=== PATIENT | female | born 1965 | race Hispanic/Latino ===

== ENCOUNTER 2022-08-07 21:35 | Emergency (ER) | payer OTHER ==
[~2022-08-07] VITALS: Ht 154.9 cm; Wt 100.7 kg
[2022-08-07] MEDS ORDERED: DEXAMETHASONE SOD PHOSPHATE 4 MG/ML 1ML VIAL IM ONE (23:30)
[2022-08-07] MEDS ORDERED: ONDANSETRON ODT 4MG TAB SL ONE (23:30)
[2022-08-07] MEDS ORDERED: ACETAMINOPHEN 500 MG TABLET PO ONE (23:30)
[2022-08-07] MEDS ORDERED: KETOROLAC 60 MG VIAL (30MG/ML) IM ONE (23:30)
[2022-08-08 01:01] VITALS: BP 120/84
[2022-08-08] MEDS ORDERED: IBUP-2070 PO (01:05)
[2022-08-08] MEDS ORDERED: PSEU120T62 PO (01:05)
[2022-08-08] MEDS ORDERED: AMOX-426 PO (01:05)
[2022-08-08] MEDS ORDERED: PHEN118L19 PO (01:05)
== END 2022-08-08 01:19 | disposition home or self-care (01) ==
LOC: EDH 21:35
DX: J01.90 Acute sinusitis, unspecified (principal); I10 Essential (primary) hypertension; E11.9 Type 2 diabetes mellitus without complications; J45.909 Unspecified asthma, uncomplicated; Z20.822 Contact with and (suspected) exposure to COVID-19; Z85.828 Personal history of other malignant neoplasm of skin; Z96.652 Presence of left artificial knee joint; Z90.710 Acquired absence of both cervix and uterus; Z98.890 Other specified postprocedural states
CPT/HCPCS: 99284; 87635; 87880; 87804 ×2; 96372 ×2; J1100; C9803; J1885

== ENCOUNTER 2022-10-31 22:47 | Emergency (ER) | payer OTHER ==
[~2022-10-31] VITALS: Ht 152.4 cm; Wt 103.0 kg
[~2022-10-31 22:47] MED LIST: AMOX-426 PO; IBUP-2070 PO; PHEN118L19 PO; PSEU120T62 PO
[2022-11-01] MEDS ORDERED: PREG100C PO (02:15)
[2022-11-01] MEDS ORDERED: PREGABALIN 100 MG CAPSULE PO ONE (02:30)
[2022-11-01] MEDS ORDERED: PREGABALIN 25 MG CAP ONE (02:50)
[2022-11-01] MEDS ORDERED: PREGABALIN 75 MG CAPSULE ONE (02:50)
[2022-11-01 03:20] VITALS: BP 128/56; PULSE 89; RESP 18
== END 2022-11-01 03:32 | disposition home or self-care (01) ==
LOC: EDH 22:47
DX: M79.7 Fibromyalgia (principal); M79.641 Pain in right hand; M79.642 Pain in left hand; M25.551 Pain in right hip; M25.552 Pain in left hip; I10 Essential (primary) hypertension; E11.9 Type 2 diabetes mellitus without complications; E78.00 Pure hypercholesterolemia, unspecified; M19.90 Unspecified osteoarthritis, unspecified site; Z79.899 Other long term (current) drug therapy; Z90.710 Acquired absence of both cervix and uterus; Z98.890 Other specified postprocedural states

== ENCOUNTER 2023-04-10 23:12 | Emergency (ER) | payer MEDICAID, OTHER ==
[~2023-04-10] VITALS: Ht 154.9 cm; Wt 102.1 kg
[~2023-04-10 23:12] MED LIST changes: +PREG100C PO
[2023-04-11] MEDS ORDERED: NAPR-1180 PO (01:16)
[2023-04-11] MEDS ORDERED: AMOX-426 PO (01:16)
[2023-04-11] MEDS ORDERED: KETOROLAC 15MG/ML VIAL (15MG/ML) IM ONE (01:30)
[2023-04-11] MEDS ORDERED: CEFTRIAXONE 1G VIAL IM ONE (01:30)
[2023-04-11 01:38] VITALS: BP 146/76; PULSE 86; RESP 18; O2SAT 99
== END 2023-04-11 01:38 | disposition home or self-care (01) ==
LOC: EDH 23:12
DX: K02.9 Dental caries, unspecified (principal); K04.7 Periapical abscess without sinus; I10 Essential (primary) hypertension; E11.9 Type 2 diabetes mellitus without complications; Z90.49 Acquired absence of other specified parts of digestive tract; Z79.899 Other long term (current) drug therapy; Z90.710 Acquired absence of both cervix and uterus; Z98.890 Other specified postprocedural states
CPT/HCPCS: 99284; 96372 ×2; J0696; J1885

== ENCOUNTER 2023-07-07 22:55 | Emergency (ER) | payer MEDICAID, OTHER ==
[~2023-07-07] VITALS: Ht 154.9 cm; Wt 101.6 kg
[~2023-07-07 22:55] MED LIST changes: +NAPR-1180 PO
[2023-07-07 22:56] VITALS: BP 144/85; PULSE 102; RESP 18
[2023-07-07] MEDS ORDERED: IBUP-2077 PO (23:09)
[2023-07-07] MEDS ORDERED: CLIN-141 PO (23:09)
[2023-07-07] MEDS: CEFTRIAXONE 1G VIAL IM ONE (23:12)
[2023-07-07] MEDS: IBUPROFEN 800 MG TAB PO ONE (23:12)
== END 2023-07-07 23:44 | disposition home or self-care (01) ==
LOC: EDH 22:55
DX: K02.9 Dental caries, unspecified (principal); I10 Essential (primary) hypertension; E11.9 Type 2 diabetes mellitus without complications; E78.00 Pure hypercholesterolemia, unspecified; Z79.899 Other long term (current) drug therapy; Z90.710 Acquired absence of both cervix and uterus; Z98.890 Other specified postprocedural states
CPT/HCPCS: 99283; 96372; J0696